=== PATIENT | female | born 1980 | race Caucasian/White ===

== ENCOUNTER 2016-10-15 11:42 | Emergency (ER) | payer MEDICAID ==
--- NOTE | 2016-10-15 11:49 | ER Document Report ---
ED Medical Screen (RME) - General Stated Complaint: MED REFILL Time seen by provider: 11:46 Mode of Arrival: Ambulatory Notes: Patient states she was late for MD appt for med refills and has been out of meds for about 1-1/2 weeks ago, and needs med refills on Adderall and Percocet until she can see PCP as scheduled on October 23. Pt states she is detoxing from meds. I have greeted and performed a rapid initial assessment of this patient. A comprehensive ED assessment and evaluation of the patient, analysis of test results and completion of the medical decision making process will be conducted by additional ED providers. TRAVEL OUTSIDE OF THE [place] IN LAST 30 DAYS: No - Related Data Allergies/Adverse Reactions: acetaminophen [From Vicodin] Allergy (Intermediate, Verified 10/15/16 11:45) Hives hydrocodone [From Vicodin] Allergy (Intermediate, Verified 10/15/16 11:45) Hives Past Medical History Endocrine Medical History: Reports: Hx Diabetes Mellitus Type 2 Physical Exam - General General appearance: Appears well, Alert In distress: None - Respiratory Notes: Lungs clear to auscultation, no respiratory distress noted.
--- NOTE | 2016-10-15 12:41 | ER Document Report ---
ED General - General Chief Complaint: Medication Refill Stated Complaint: MED REFILL Mode of Arrival: Ambulatory Information source: Patient Notes: This is a 36-year-old female who presents to the emergency department for medication refill. She states that she has recently moved here from [place]" and that her new primary care physician, Dr. Coyle, gave her a 1 month supply of Percocet 10 and Adderall last month. She missed her follow-up appointment for her med refill last week. She has been out of these medications since. She has a new follow-up appointment on the next week and she requests a supply of Adderall and Percocet 10 to hold her over until her appointment. She has no other complaints or concerns today. TRAVEL OUTSIDE OF THE [place] IN LAST 30 DAYS: No - Related Data Allergies/Adverse Reactions: acetaminophen [From Vicodin] Allergy (Intermediate, Verified 10/15/16 11:45) Hives hydrocodone [From Vicodin] Allergy (Intermediate, Verified 10/15/16 11:45) Hives Past Medical History - General Information source: Patient - Social History Smoking Status: Unknown if Ever Smoked Chew tobacco use (# tins/day): No Frequency of alcohol use: None Drug Abuse: None Family History: Reviewed & Not Pertinent Patient has suicidal ideation: No Patient has homicidal ideation: No Endocrine Medical History: Reports: Hx Diabetes Mellitus Type 2 Renal/ Medical History: Denies: Hx Peritoneal Dialysis Psychiatric Medical History: Reports: Hx Bipolar Disorder Review of Systems - Review of Systems Notes: REVIEW OF SYSTEMS: CONSTITUTIONAL : Denies fever, chills, or sweats. Denies recent illness. EENT: Denies eye, ear, throat, or mouth pain or symptoms. Denies nasal or sinus congestion. CARDIOVASCULAR: Denies chest pain. RESPIRATORY: Denies cough, cold, or chest congestion. Denies shortness of breath, difficulty breathing, or wheezing. GASTROINTESTINAL: Denies abdominal pain. Denies nausea, vomiting, or diarrhea. Denies constipation. Last BM: GENITOURINARY: Denies difficulty urinating, painful urination, burning, frequency, or blood in urine. MUSCULOSKELETAL: Bilateral hand pain from carpal tunnel syndrome for which she takes Percocet. Denies neck or back pain SKIN: Denies rash or skin lesions. HEMATOLOGIC : Denies easy bruising or bleeding. LYMPHATIC: Denies swollen, enlarged glands. NEUROLOGICAL: Denies altered mental status or loss of consciousness. Denies headache. PSYCHIATRIC: Denies anxiety or stress or depression. ALL OTHER SYSTEMS REVIEWED AND NEGATIVE. Physical Exam - Vital signs Vitals: Temp Pulse Resp BP Pulse Ox 98.2 F 116 H 15 148/97 H 100 10/15/16 11:46 10/15/16 11:46 10/15/16 11:46 10/15/16 11:46 10/15/16 11:46 - Notes Notes: PHYSICAL EXAMINATION: GENERAL: Well-appearing, well-nourished and in no acute distress. Pleasant and conversant HEAD: Atraumatic, normocephalic. EYES: Pupils equal round and reactive to light, extraocular movements intact, sclera anicteric, conjunctiva are normal. ENT: nares patent, oropharynx clear without exudates. Moist mucous membranes. NECK: Normal range of motion, supple without lymphadenopathy LUNGS: Breath sounds clear to auscultation bilaterally and equal. No wheezes rales or rhonchi. HEART: Regular rate and rhythm without murmurs, heart rate 92 ABDOMEN: Soft, nontender, normoactive bowel sounds. No guarding, no rebound. No masses appreciated. EXTREMITIES: Normal range of motion, no pitting or edema. No cyanosis. NEUROLOGICAL: Cranial nerves grossly intact. Normal speech, normal gait. Normal sensory, and motor exams. PSYCH: Normal mood, normal affect. SKIN: Warm, Dry, normal turgor, no rashes or lesions noted. Course - Re-evaluation Re-evalutation: 10/15/16 12:41 I discussed nonnarcotic pain control options with the patient and explained that we could not refill her chronic pain meds in the emergency department. Patient has no history of seizures and has tolerated Ultram in the past and so will prescribe this today. I did instruct her to call her primary care physician for the refill into move her appointment date up if possible. At this time her exam and vital signs are within normal limits. Strict return precautions were discussed. 10/15/16 12:47 - Vital Signs Vital signs: Temp Pulse Resp BP Pulse Ox 98.2 F 116 H 15 148/97 H 100 10/15/16 11:46 10/15/16 11:46 10/15/16 11:46 10/15/16 11:46 10/15/16 11:46 Discharge - Discharge Clinical Impression: Medication refill, Elevated blood pressure reading Chronic pain Qualifiers: Chronic pain type: other chronic pain Qualified Code(s): G89.29 - Other chronic pain Disposition: HOME, SELF-CARE Additional Instructions: Ultram Ultram is an excellent drug for pain relief. It is not a narcotic, but it works in a similar way. Ultram can take up to two hours for full effect. Although not addicting, Ultram is best avoided in patients with a history of drug abuse. Ultram should not be used with alcohol, sleeping pills, or narcotics. If you're prone to seizures, Ultram can make you more likely to have a seizure. Ultram can be hazardous when combined with MAO-inhibitor antidepressants (such as Nardil or Parnate). Be sure your doctor is aware of all medicines you are taking. Persons with severe liver or kidney disease should increase the time between doses of Ultram. Discuss this with your doctor if you're uncertain. Side effects of Ultram can include dizziness, nausea, constipation, sleepiness, and itching. (These side effects are also seen with narcotic pain medicines.) Please call your doctor if you have other disturbing effects. As instructed, please follow-up with your primary care physician for further refills of chronic pain medications. Prescriptions: Tramadol HCl [Ultram 50 mg Tablet] 50 mg PO ASDIR PRN #20 tablet PRN Reason: Forms: Elevated Blood Pressure
[2016-10-15 13:02] VITALS: BP 111/68
== END 2016-10-15 12:57 | disposition home or self-care (01) ==
LOC: ER 11:42
DX: Z76.0 Encounter for issue of repeat prescription (principal); G89.29 Other chronic pain; M79.642 Pain in left hand; M79.641 Pain in right hand; G56.03 Carpal tunnel syndrome, bilateral upper limbs; R03.0 Elevated blood-pressure reading, without diagnosis of hypertension; E11.9 Type 2 diabetes mellitus without complications; Z88.6 Allergy status to analgesic agent; Z88.5 Allergy status to narcotic agent
CPT/HCPCS: 99281

== ENCOUNTER 2016-10-16 15:04 | Emergency (ER) | payer MEDICAID ==
[2016-10-16 15:38] VITALS: BP 142/80
== END 2016-10-17 01:18 | disposition left against medical advice (07) ==
LOC: ER 15:04
DX: Z53.21 Procedure and treatment not carried out due to patient leaving prior to being seen by health care provider (principal)

== ENCOUNTER 2017-07-29 22:47 | Emergency (ER) | payer MEDICAID ==
[2017-07-29] MEDS ORDERED: FLUCONAZOLE 100 MG TABLET PO ONE (23:45)
--- NOTE | 2017-07-29 23:51 | ER Document Report ---
HPI - HPI Pain Level: 5 Notes: Patient is a 37-year-old female with a history of diabetes and recurrent yeast infection who presents the ED complaining of a yeast infection and in request of Diflucan. Pt is having a thick white discharge from her vaginal canal. Patient states that she did see her PCM during the day and told him about it, but he must have forgot she did not get the prescription. Patient states that she is leaving for town in the morning and has a yeast infection currently that is bothering her and she would like Diflucan for it. She has no other concerns or complaints. She is eating and drink without difficulties. She is urinating normally and having normal bowel movements. Denies any headache, fever, head injury, neck pain, changes in vision/speech/mentation/hearing, URI, sore throat , chest pain, palpitations, syncope, cough, shortness of breath, wheeze, dyspnea , abdominal pain, nausea/vomiting/diarrhea, urinary retention, dysuria, hematuria, loss of control of bowel or bladder, numbness/tingling, muscle paralysis/weakness, vaginal bleeding, or rash. - ROS Notes: REVIEW OF SYSTEMS: CONSTITUTIONAL : Denies fever, chills, or sweats. Denies recent illness. EENT: Denies eye, ear, throat, or mouth pain or symptoms. Denies nasal or sinus congestion or discharge. Denies throat, tongue, or mouth swelling or difficulty swallowing. CARDIOVASCULAR: Denies chest pain. Denies palpitations or racing or irregular heart beat. RESPIRATORY: Denies cough, cold, or chest congestion. Denies shortness of breath, difficulty breathing, or wheezing. GASTROINTESTINAL: Denies abdominal pain or distention. Denies nausea, vomiting , or diarrhea. Denies blood in vomitus, stools, or per rectum. Denies black, tarry stools. Denies constipation. GENITOURINARY: Denies difficulty urinating, painful urination, burning, frequency, blood in urine, or discharge. FEMALE GENITOURINARY: see hpi MUSCULOSKELETAL: Denies back or neck pain or stiffness. Denies joint pain or swelling. SKIN: Denies rash, lesions or sores. NEUROLOGICAL: Denies confusion or altered mental status. Denies passing out or loss of consciousness. Denies dizziness or lightheadedness. Denies headache. Denies weakness or paralysis or loss of use of either side. Denies problems with gait or speech. Denies sensory loss, numbness, or tingling. Denies seizures. ALL OTHER SYSTEMS REVIEWED AND NEGATIVE. Dictation was performed using [employer] voice recognition software Past Medical History - Social History Smoking Status: Unknown if Ever Smoked Family History: Reviewed & Not Pertinent Endocrine Medical History: Reports: Hx Diabetes Mellitus Type 2 Renal/ Medical History: Denies: Hx Peritoneal Dialysis Psychiatric Medical History: Reports: Hx Bipolar Disorder Vertical Provider Document - CONSTITUTIONAL Agree With Documented VS: Yes Notes: PHYSICAL EXAMINATION: GENERAL: Well-appearing, well-nourished and in no acute distress. A&Ox4 LUNGS: Breath sounds clear to auscultation bilaterally and equal. No wheezes rales or rhonchi. HEART: Regular rate and rhythm without murmurs, rubs, gallops. ABDOMEN: Soft, nontender, nondistended abdomen. No guarding, no rebound. No masses appreciated. Normal bowel sounds present. No CVA tenderness bilaterally. Musculoskeletal: FROM to passive/active. Strength 5+/5. Extremities: No cyanosis, clubbing, or edema b/l. Peripheral pulses 2+. Capillary refill less than 3 seconds. NEUROLOGICAL: Normal speech, normal gait. Normal sensory, motor exams PSYCH: Normal mood, normal affect. SKIN: Warm, Dry, normal turgor, no rashes or lesions noted. - INFECTION CONTROL TRAVEL OUTSIDE OF THE [place] IN LAST 30 DAYS: No - RESPIRATORY O2 Sat by Pulse Oximetry: 98 Course - Re-evaluation Re-evalutation: 07/29/17 23:47 Patient is an afebrile, well-hydrated, 37-year-old female who presents ED with a yeast infection. Vitals are stable. PE is otherwise unremarkable. Patient has recurrent yeast infections based on her history and is only in need of Diflucan. Diflucan given p.o. today. I will send her home with a prescription for another tablet if needed. Recommend conservative measures for symptoms otherwise. Recheck with your PCM in 3-5 days. Return to the ED with any worsening/concerning symptoms otherwise as reviewed in discharge. Patient is in agreement. - Vital Signs Vital signs: Temp Pulse Resp BP Pulse Ox 98.3 F 105 H 20 148/105 H 98 07/29/17 23:31 07/29/17 23:31 07/29/17 23:31 07/29/17 23:31 07/29/17 23:31 Discharge - Discharge Clinical Impression: Vaginal yeast infection Condition: Stable Disposition: HOME, SELF-CARE Instructions: Vaginal Yeast Infection ([facility]), Fluconazole ([facility]) Additional Instructions: Take medication as needed for yeast infections Tylenol/ibuprofen if needed Maintain adequate fluid intake Monitor for any worsening symptoms Recheck with your PCM in 3-5 days Return to the ED with any worsening symptoms and/or development of fever, headache, chest pain, palpitations, syncope, shortness of breath, trouble breathing, abdominal pain, n/v/d, blood in stool/urine, loss of control of bowel /bladder, urinary retention, or other worsening symptoms that are concerning to you. Prescriptions: Fluconazole [Diflucan] 150 mg PO ONCE PRN #1 tablet PRN Reason: Forms: Elevated Blood Pressure Referrals: NOEMY RAMIREZ MD [ACTIVE STAFF] - Follow up as needed
[2017-07-29 23:59] VITALS: BP 125/78
== END 2017-07-29 23:58 | disposition home or self-care (01) ==
LOC: ER 22:47
DX: B37.3 Candidiasis of vulva and vagina (principal); E11.9 Type 2 diabetes mellitus without complications; N89.8 Other specified noninflammatory disorders of vagina
CPT/HCPCS: 99281; J3490